=== PATIENT | female | born 1995 | race Hispanic/Latino ===

== ENCOUNTER → 2023-01-24 | Outpatient (CLI) | payer MEDICAID | END | disposition home or self-care (01) | LOC: RAH 09:10 | PROVIDERS: ATTEND Internal Medicine Gastroenterology | DX: R13.10 Dysphagia, unspecified (principal); R12 Heartburn; R11.2 Nausea with vomiting, unspecified | CPT/HCPCS: 74240 ==

== ENCOUNTER 2023-03-26 06:56 | Day surgery (SDC) | payer MEDICAID ==
[2023-03-26] VITALS (11 sets, daily range): BP systolic 94–120; BP diastolic 56–87; PULSE 76–91; RESP 13–20
[~2023-03-26] VITALS: Ht 152.4 cm; Wt 104.3 kg
[~2023-03-26 06:56] MED LIST: CHOL400D7 PO; CLOB30CR5 TP; FLUO25PO10 PO; FLUT1DIS4 IH; FLUT9.9S16 NS; FOLI0.8T3 PO; LINA72CA PO; LORA10TA7 PO; MEDR150D9 IM; MONT-39 PO; ONDA4AMP IJ; TRAZ-185 PO; TRIA10PO3 MC; ZONI25CA14 PO
[2023-03-26] MEDS: 0.9%NACL 1000ML 1,000 ML IV ONE (08:15)
[2023-03-26] MEDS ORDERED: PROPOFOL 10 MG/ML 20ML VIAL IV ONE (10:36)
== END 2023-03-26 11:52 | disposition home or self-care (01) ==
LOC: DAH 06:56 → ENDO 06:56
PROVIDERS: ATTEND Internal Medicine Gastroenterology
DX: R13.10 Dysphagia, unspecified (principal); K22.2 Esophageal obstruction; K44.9 Diaphragmatic hernia without obstruction or gangrene; K21.9 Gastro-esophageal reflux disease without esophagitis; R11.2 Nausea with vomiting, unspecified; K31.89 Other diseases of stomach and duodenum; K29.30 Chronic superficial gastritis without bleeding; K59.04 Chronic idiopathic constipation; K76.0 Fatty (change of) liver, not elsewhere classified; E66.9 Obesity, unspecified; J45.909 Unspecified asthma, uncomplicated; F41.9 Anxiety disorder, unspecified; F32.A Depression, unspecified; Z68.42 Body mass index [BMI] 45.0-49.9, adult
CPT/HCPCS: 81025; 43239; 43248; J7030 ×2; J3490; A4620; A4215; A4223; A7002; A4222; A4221; A4663; J2704

== ENCOUNTER → 2023-06-17 | Outpatient (CLI) | payer MEDICAID | END | disposition home or self-care (01) | LOC: SHCH 12:55 | PROVIDERS: ATTEND Internal Medicine Cardiovascular Disease | DX: R00.0 Tachycardia, unspecified (principal); I10 Essential (primary) hypertension | CPT/HCPCS: 93306 ==